=== PATIENT | female | born 1955 | race Caucasian/White ===

== ENCOUNTER 2021-11-21 10:19 | Day surgery (SDC) | payer BC, SELFPAY ==
--- NOTE | 2021-11-21 07:55 | OP_ITS ---
OPERATIVE PROCEDURE [facility]man phacoemulsification of the right eye with a posterior chamber lens implant. PREOP DIAGNOSIS Nuclear sclerotic combined cataract, right eye. POSTOP DIAGNOSIS Pseudophakia, right eye. COMPLICATIONS None. INDICATIONS FOR SURGERY The patient has experienced a painless, progressive loss of vision in her right eye over the past several years that is interfering with her reading, driving, and day-to-day activities. ?Severity is 7/10. ?Charlie Feliz MD was unable to improve her vision refractively. For that reason, she elected to proceed with surgical repair. ?I have explained the risks, benefits, alternative treatments to her including possible loss of the eye, over correction, under correction, need for more surgery. ?The patient understands, accepts, and elects to proceed with surgical repair. OPERATIVE PROCEDURE The right eye was dilated with a combination of 1% Mydriacyl, 2.5% phenylephrine with topical Ocufen and Vigamox applied to the corneal surface. She was brought to the main operating room where under IV sedation, the right eye was prepped and draped in the usual sterile fashion for intraocular surgery. ?Prior to giving IV sedation, a pause was carried out to identify the correct patient, correct procedure, cataract phacoemulsification right eye with a posterior chamber lens implant with an 18 diopter ZCBOO lens implant. After sterile prep and drape, a lid speculum was placed, and a paracentesis created at 12 o'clock. ?The chamber was filled with OVD and entered temporally with a keratome. ?A continuous tear capsulotomy was performed. ?The nucleus was then hydrodissected and emulsified in a chop technique in the capsular bag. ?Residual cortex was clean. The capsule expanded with OVD and a ZCBOO 18 diopter lens implant injected into the capsular bag. ?Residual OVD was cleaned. ?The incision hydrated and noted to be leak-free. Topical Alphagan, pilocarpine, and Vigamox were applied to the corneal surface, and the patient returned to the recovery in good having tolerated the procedure well. ? CONDITION ON DISCHARGE Satisfactory. ?
[2021-11-21 10:35] VITALS: BMI 23.8
[2021-11-21] MEDS: TETRACAINE 0.5% OPHTH 1 DROP EYE-RIGHT (10:40)
[2021-11-21] MEDS: TETRACAINE 0.5% OPHTH 2 DROP EYE-RIGHT (10:40)
[2021-11-21 10:46] VITALS: BP 173/89; PULSE 76; RESP 20; TEMP 36.8
[2021-11-21] MEDS: KETOROLAC OPHTH 0.5% 1 DROP EYE-RIGHT ×3 (10:47→11:08)
[2021-11-21] MEDS: BALANCED SALT IRRIG SOLN 15 ML EYE-RIGHT (11:41)
[2021-11-21 11:53] VITALS: BP 127/72; PULSE 65; RESP 16; TEMP 37.1; O2SAT 99
--- NOTE | 2021-11-21 11:59 | W.ANESCHARGE ---
Anesthesia Charges Start Date/Time Anesthesia Start Date: 11/21/21 Anesthesia Start Time: 11:30 Stop Date/Time Anesthesia Stop Date: 11/21/21 Anesthesia Stop Time: 11:55 Summary Emergency: No
--- NOTE | 2021-11-21 12:27 | W.ANESCHARGE ---
Anesthesia Charges Start Date/Time Anesthesia Start Date: 11/21/21 Anesthesia Start Time: 11:30 Stop Date/Time Anesthesia Stop Date: 11/21/21 Anesthesia Stop Time: 11:55 Summary Emergency: No
== END 2021-11-21 13:07 | disposition home or self-care (01) ==
PROVIDERS: PCP Family Medicine; Visit Provider Ophthalmology
PROC: (CPT 66984; principal; 2021-11-21 11:30)
DX: H25.11 Age-related nuclear cataract, right eye (principal)
CPT/HCPCS: 66984; 142; A9270; J2250; J3010; S0020; V2632